=== PATIENT | male | born 1985 | race American Indian/Alaskan Native ===

== ENCOUNTER 2021-05-01 15:04 | Emergency (ER) | payer MEDICAID, OTHER ==
[2021-05-01] MEDS ORDERED: Ketorolac 30 MG/ML SDV IM ONE (15:21)
== END 2021-05-01 15:37 | disposition home or self-care (01) ==
LOC: VM.ED 15:04
DX: K02.9 Dental caries, unspecified (principal)
CPT/HCPCS: 99282; 99283